=== PATIENT | female | born 1985 | race Caucasian/White ===

== ENCOUNTER 2024-04-18 07:57 | Emergency (ER) | payer OTHER ==
[~2024-04-18] VITALS: Ht 172.7 cm; Wt 79.0 kg
[2024-04-18 08:07] VITALS: O2SAT 100
[2024-04-18] MEDS ORDERED: LACTATED RINGERS 1,000 ML IV SCH (08:30)
[2024-04-18 08:37] LABS: BASOPHILS % 1.1 % (0.0-2.0); CHLORIDE 106 mEq/L (98-107); EOSINOPHILS % 1.4 % (0.0-5.0); HEMATOCRIT. 39.6 % (36.0-48.0); HEMOGLOBIN. 12.8 g/dL (12.0-16.0); LYMPHOCYTES % 24.8 % (20.0-50.0); MEAN CORPUSCULAR HEMOGLOBIN 27.5 pg (28.0-32.0); MEAN CORPUSCULAR HGB CONC 32.3 g/dL (31.0-37.0); MEAN CORPUSCULAR VOLUME 85.2 fL (81.0-99.0); MEAN PLATELET VOLUME 8.6 fl (7.4-10.4); MONOCYTES % 7.7 % (2.0-8.0); PLATELET 469 x1000/uL (130-400); RED BLOOD CELL COUNT 4.65 mill/uL (4.2-5.4); RED CELL DISTRIBUTION WIDTH 16.3 % (11.6-14.6); SODIUM 139 mEq/L (136-145); WHITE BLOOD COUNT 12.3 x1000/uL (4.5-11.0)
[2024-04-18 08:38] LABS: CALCIUM 9.3 mg/dL (8.7-10.4); CARBON DIOXIDE 24 mEq/L (21-32)
[2024-04-18 08:43] LABS: CREATININE 0.7 mg/dL (0.6-1.0); GLUCOSE 93 mg/dL (70-105)
[2024-04-18 08:44] LABS: UREA NITROGEN BLOOD 8 mg/dL (9-23)
[2024-04-18 08:45] LABS: ALANINE AMINOTRANSFERASE 35 IU/L (10-49); ALBUMIN 4.2 g/dL (3.2-4.8); ASPARTATE AMINOTRANSFERASE 21 IU/L (<34)
[2024-04-18 08:46] LABS: BILIRUBIN TOTAL 0.4 mg/dL (0.1-1.0)
[2024-04-18 08:56] LABS: BILIRUBIN DIRECT < 0.1 mg/dL (<=3.0)
[2024-04-18] MEDS: ACETAMINOPHEN 325MG TABLET PO ONE (09:08)
[2024-04-18] MEDS: SODIUM CHLORIDE 0.9% 1,000 ML IV ONE (09:08)
[2024-04-18] MEDS: METOCLOPRAMIDE HCL 10MG/2ML VIAL IV ONE (09:08)
[2024-04-18 09:28] LABS: CLARITY URINE CLEAR (CLEAR); COLOR URINE YELLOW (YELLOW); GLUCOSE URINE NEGATIVE (NEGATIVE); KETONES URINE NEGATIVE (NEGATIVE); LEUKOCYTE ESTERASE URINE NEGATIVE (NEGATIVE); NITRITE URINE NEGATIVE (NEGATIVE); OCCULT BLOOD URINE NEGATIVE (NEGATIVE); PH URINE 7.5 (4.5-8.0); PROTEIN URINE NEGATIVE (NEGATIVE); SPECIFIC GRAVITY URINE 1.006 (1.005-1.030); UROBILINOGEN URINE 0.2 E.U./dL (0.2-1.0)
[2024-04-18 09:44] LABS: HCG SCREEN NEGATIVE
[2024-04-18 10:57] VITALS: BP 127/79; PULSE 67; RESP 18; TEMP 37.1; O2SAT 99
== END 2024-04-18 11:03 | disposition home or self-care (01) ==
LOC: ER 07:57
DX: R51.9 Headache, unspecified (principal); R10.30 Lower abdominal pain, unspecified; Z90.49 Acquired absence of other specified parts of digestive tract; Z90.710 Acquired absence of both cervix and uterus
CPT/HCPCS: 99285; 70450; 96374; 80076; 80048; 81003; 81025; 84703; 83690; 85025; 36415; 74176; J2765; J7030

== ENCOUNTER 2024-06-23 12:25 | Emergency (ER) | payer OTHER ==
[~2024-06-23] VITALS: Ht 167.6 cm; Wt 108.8 kg
[2024-06-23 12:29] VITALS: TEMP 36.7; O2SAT 98
[2024-06-23] MEDS ORDERED: SULF1TAB48 MT (12:54)
[2024-06-23] MEDS ORDERED: CEPH500T MT (12:54)
[2024-06-23 13:25] VITALS: BP 137/84; PULSE 104; RESP 16; O2SAT 100
== END 2024-06-23 13:21 | disposition home or self-care (01) ==
LOC: ER 12:25
DX: L03.90 Cellulitis, unspecified (principal); Z79.899 Other long term (current) drug therapy; Z90.710 Acquired absence of both cervix and uterus; Z90.49 Acquired absence of other specified parts of digestive tract
CPT/HCPCS: 99283